=== PATIENT | male | born 1975 | race Caucasian/White ===

== ENCOUNTER → 2020-12-12 | Outpatient (CLI) | payer OTHER ==
[~2020-12-12] MED LIST: ASPI-COR81 M1 PO; CIPRO XR500 MG PO; COREG; COREG6.25 MG; DOXYCYCLINE MO100 MG PO; K-DUR 20MEQ20 MEQ PO; LANOXIN125 MCG/2. PO; LASIX20 MG PO; LISINOPRIL5 MG PO; PEPCID AC20 MG; PLAVIX75 MG PO; PRAVACHOL80 MG PO; PRILOSEC20 MG PO; ZOCOR40 MG PO
== END | disposition home or self-care (01) ==
LOC: CARD 12:37
PROVIDERS: ATTEND Internal Medicine Cardiovascular Disease
DX: I51.7 Cardiomegaly (principal); I25.5 Ischemic cardiomyopathy

== ENCOUNTER → 2021-07-10 | Outpatient (CLI) | payer OTHER ==
[2021-07-10 12:53] LABS: BUN 11 mg/dl (7-24); CHLORIDE 108 mmol/L (98-107); CHOLESTEROL 187 mg/dL (<200); CREATININE 0.72 mg/dL (0.70-1.30); LDL CHOLESTEROL 128 mg/dL (9-159); POTASSIUM 4.3 mmol/L (3.5-5.1); SODIUM 138 mmol/L (136-145); TRIGLYCERIDES 138 mg/dl (<150)
== END | disposition home or self-care (01) ==
LOC: LAB 11:48
PROVIDERS: ATTEND Internal Medicine Cardiovascular Disease
DX: I25.10 Atherosclerotic heart disease of native coronary artery without angina pectoris (principal)

== ENCOUNTER → 2021-10-02 | Outpatient (CLI) | payer OTHER ==
[~2021-10-02] MED LIST changes: +AMIODARONE900 MG/501 IV; +BUPRENORPHINE-1 EAC1 SL; +BUPROPION HCL150 M1 PO; -COREG6.25 MG; +COREG6.25 MG PO; +ENTRESTO 97 MG1 EACH PO; +NEURONTIN600 MG PO
[2021-10-02 12:59] LABS: CHLORIDE 109 mmol/L (98-107); POTASSIUM 4.6 mmol/L (3.5-5.1); SODIUM 136 mmol/L (136-145)
[2021-10-02 13:21] LABS: ALKALINE PHOSPHATASE 104 U/L (45-117); BUN 16 mg/dl (7-24); CREATININE 1.17 mg/dL (0.70-1.30); SGOT/AST 13 IU/L (3-35); SGPT/ALT 19 U/L (12-78); TOTAL PROTEIN 7.5 gm/dL (6.4-8.2)
== END ==
LOC: LAB 12:01
PROVIDERS: ATTEND Internal Medicine Clinical Cardiac Electrophysiology
DX: Z79.899 Other long term (current) drug therapy (principal)

== ENCOUNTER → 2022-06-04 | Outpatient (CLI) | payer OTHER ==
[2022-06-04 12:55] LABS: BASO # 0.1 10*3/uL (0.0-0.1); BASO % 0.6 % (0.0-1.0); EOS # 0.4 10*3/uL (0.0-0.4); EOS % 4.4 % (1.0-4.0); HEMATOCRIT 38.5 % (42.0-52.0); LYMPH # 1.5 10*3/uL (1.3-4.4); LYMPH % 17.7 % (27.0-41.0); MEAN CORPUSCULAR HGB 28.8 pg (27.0-31.0); MEAN CORPUSCULAR HGB CONC 31.7 g/dl (33.0-37.0); MONO # 0.6 10*3/uL (0.1-1.0); NEUT # 5.7 10*3/uL (2.3-7.9); NEUT % 70.1 % (47.0-73.0); PLATELET COUNT AUTOMATED 213 10*3/uL (130-400); RED BLOOD COUNT 4.23 10*6/uL (4.50-5.90); RED CELL DISTRI WIDTH 15.2 % (0-14.5); WHITE BLOOD COUNT 8.2 10*3/uL (4.8-10.8)
[2022-06-04 13:25] LABS: ALKALINE PHOSPHATASE 105 U/L (46-116); BUN 15 mg/dl (9-23); CHLORIDE 107 mmol/L (98-107); POTASSIUM 4.5 mmol/L (3.4-5.1); SGPT/ALT 14 U/L (10-49); TOTAL PROTEIN 6.9 gm/dL (6.0-8.0)
[2022-06-05 11:07] LABS: HBSAG Negative (Negative); HEP B CORE AB, IGM Negative (Negative); HEPATITIS C ANTIBODY 0.1 (0.0-0.9)
== END | disposition home or self-care (01) ==
LOC: LAB 12:06
PROVIDERS: ATTEND Nurse Practitioner Family
DX: Z13.9 Encounter for screening, unspecified (principal); Z77.21 Contact with and (suspected) exposure to potentially hazardous body fluids

== ENCOUNTER → 2022-06-26 | Outpatient (CLI) | payer OTHER | END | disposition home or self-care (01) | LOC: CARD 01:45 | PROVIDERS: ATTEND Internal Medicine Cardiovascular Disease | DX: I34.0 Nonrheumatic mitral (valve) insufficiency (principal); I25.5 Ischemic cardiomyopathy ==

== ENCOUNTER → 2022-07-03 | Outpatient (CLI) | payer OTHER ==
[2022-07-03 11:24] LABS: HEMATOCRIT 38.8 % (42.0-52.0)
[2022-07-03 11:27] LABS: BILIRUBIN Negative (Negative); BLOOD Negative (Negative); CLARITY Cloudy (Clear); COLOR Yellow (Yellow); GLUCOSE Negative (Negative); KETONE Trace (Negative); LEUKO ESTERASE Negative (Negative); NITRITE Negative (Negative); SPECIFIC GRAVITY 1.025 (1.001-1.030)
[2022-07-03 11:36] LABS: URINE CREATININE RANDOM 189.7 mg/dL
[2022-07-03 11:38] LABS: BUN 18 mg/dl (9-23); CHLORIDE 105 mmol/L (98-107); POTASSIUM 5.4 mmol/L (3.4-5.1)
[2022-07-03 12:16] LABS: BACTERIA 3+; FINE GRANULAR CAST TNTC; HYALINE CAST TNTC
[2022-07-03 13:00] LABS: VITAMIN D, 25-HYDROXY 24.1 ng/mL (30-100)
[2022-07-04 11:07] LABS: CREATININE,URINE 184.5 mg/dL (Not Estab.)
== END | disposition home or self-care (01) ==
LOC: LAB 10:45
PROVIDERS: ATTEND Internal Medicine
DX: I12.9 Hypertensive chronic kidney disease with stage 1 through stage 4 chronic kidney disease, or unspecified chronic kidney disease (principal); N18.9 Chronic kidney disease, unspecified; D63.1 Anemia in chronic kidney disease; E55.9 Vitamin D deficiency, unspecified; N25.81 Secondary hyperparathyroidism of renal origin

== ENCOUNTER → 2022-07-23 | Outpatient (CLI) | payer OTHER ==
[2022-07-23 09:50] LABS: BASO # 0.1 10*3/uL (0.0-0.1); BASO % 0.4 % (0.0-1.0); EOS # 0.2 10*3/uL (0.0-0.4); EOS % 1.9 % (1.0-4.0); HEMATOCRIT 38.9 % (42.0-52.0); LYMPH # 1.6 10*3/uL (1.3-4.4); LYMPH % 12.3 % (27.0-41.0); MEAN CELL VOLUME 93.1 fl (80.0-94.0); MEAN CORPUSCULAR HGB 30.1 pg (27.0-31.0); MEAN CORPUSCULAR HGB CONC 32.4 g/dl (33.0-37.0); MEAN PLATELET VOLUME 9.9 fl (9.6-12.3); MONO # 1.1 10*3/uL (0.1-1.0); MONO % 8.3 % (3.0-9.0); NEUT # 9.7 10*3/uL (2.3-7.9); NEUT % 76.7 % (47.0-73.0); PLATELET COUNT AUTOMATED 223 10*3/uL (130-400); RED BLOOD COUNT 4.18 10*6/uL (4.50-5.90); RED CELL DISTRI WIDTH 13.7 % (0-14.5); RETICULOCYTE % 1.96 % (0.50-2.50); WHITE BLOOD COUNT 12.7 10*3/uL (4.8-10.8)
[2022-07-23 10:09] LABS: ALKALINE PHOSPHATASE 78 U/L (46-116); BUN 17 mg/dl (9-23); CHLORIDE 107 mmol/L (98-107); CHOLESTEROL 240 mg/dL (<200); CPK 111 U/L (34-171); GAMMA GLUTAMYL TRANSPEPTIDASE 18 U/L (0-73); LDL CHOLESTEROL 164 mg/dL (9-159); POTASSIUM 4.7 mmol/L (3.4-5.1); SGPT/ALT 13 U/L (10-49); TOTAL PROTEIN 6.7 gm/dL (6.0-8.0); TRIGLYCERIDES 188 mg/dl (<150)
== END | disposition home or self-care (01) ==
LOC: LAB 08:52
PROVIDERS: ATTEND Family Medicine
DX: E78.5 Hyperlipidemia, unspecified (principal); R79.89 Other specified abnormal findings of blood chemistry; R53.83 Other fatigue; R74.8 Abnormal levels of other serum enzymes

== ENCOUNTER → 2022-08-08 | Outpatient (CLI) | payer OTHER | END | disposition home or self-care (01) | LOC: US 01:50 | PROVIDERS: ATTEND Internal Medicine | DX: N18.9 Chronic kidney disease, unspecified (principal) ==

== ENCOUNTER 2022-09-12 02:04 | Inpatient (IN) | payer OTHER ==
[2022-09-12] VITALS (79 sets, daily range): BP systolic 52–153; BP diastolic 31–127
[~2022-09-12] VITALS: Ht 185.4 cm; Wt 94.0 kg
[2022-09-12 02:32] LABS: HEMATOCRIT 30.9 % (42.0-52.0); MEAN CELL VOLUME 92.2 fl (80.0-94.0); MEAN CORPUSCULAR HGB 29.6 pg (27.0-31.0); MEAN PLATELET VOLUME 10.8 fl (9.6-12.3); PLATELET COUNT AUTOMATED 154 10*3/uL (130-400); RED BLOOD COUNT 3.35 10*6/uL (4.50-5.90); RED CELL DISTRI WIDTH 12.8 % (0-14.5); WHITE BLOOD COUNT 11.9 10*3/uL (4.8-10.8)
[2022-09-12 02:33] LABS: MANUAL DIFF REFLEX YES
[2022-09-12 02:46] LABS: ACT PARTIAL THROMBO TIME 54.4 SECONDS (20.0-32.1); INTERNATIONAL NORM RATIO 1.5 (2.0-3.5)
[2022-09-12 02:53] LABS: TOTAL CELLS COUNTED 100 #CELLS
[2022-09-12 02:54] LABS: PLATELET SUFFICIENCY NORMAL (NORMAL)
[2022-09-12 02:54] LABS: POTASSIUM 4.2 mmol/L (3.4-5.1)
[2022-09-12] MEDS ORDERED: ELIQUIS5 M1 PO (03:50)
[2022-09-12] MEDS ORDERED: GEMFIBROZIL600 MG PO (03:51)
[2022-09-12] MEDS ORDERED: ROSUVASTATIN CA40 MG PO (03:52)
[2022-09-12] MEDS ORDERED: PACERONE200 MG PO (03:53)
[2022-09-12 11:22] LABS: ARTERIAL BLOOD GAS PH 7.352 (7.35-7.45); ARTERIAL BLOOD GAS PO2 54.1 (80-90)
[2022-09-12 11:23] LABS: ABG BASE EXCESS -7.4 mmol/L (-2.0-2.0)
[2022-09-12 16:57] LABS: BILIRUBIN 1+ (Negative); BLOOD 2+ (Negative); CLARITY Turbid (Clear); COLOR Orange (Yellow); GLUCOSE Negative (Negative); KETONE Negative (Negative); LEUKO ESTERASE 1+ (Negative); NITRITE Positive (Negative); SPECIFIC GRAVITY >= 1.030 (1.001-1.030)
[2022-09-12 17:03] LABS: RBC TNTC rbc/hpf (0-2)
[2022-09-12 17:17] LABS: HEMATOCRIT 30.7 % (42.0-52.0); MEAN CELL VOLUME 91.4 fl (80.0-94.0); MEAN CORPUSCULAR HGB 30.1 pg (27.0-31.0); MEAN CORPUSCULAR HGB CONC 32.9 g/dl (33.0-37.0); MEAN PLATELET VOLUME 10.7 fl (9.6-12.3); PLATELET COUNT AUTOMATED 138 10*3/uL (130-400); RED BLOOD COUNT 3.36 10*6/uL (4.50-5.90); WHITE BLOOD COUNT 9.6 10*3/uL (4.8-10.8)
[2022-09-12 17:17] LABS: URINE AMPHETAMINES Negative (1000ng/ml); URINE BARBITURATES Negative (200ng/ml); URINE BENZODIAZEPINES Negative (200ng/ml); URINE CANNABINOIDS (THC) Negative (50ng/ml); URINE COCAINE Negative (300ng/ml); URINE METHADONE Negative (300ng/ml); URINE OPIATES Negative (300ng/ml); URINE PHENCYCLIDINE Negative (25ng/ml)
[2022-09-12 17:24] LABS: MANUAL DIFF REFLEX YES
[2022-09-12 17:38] LABS: POTASSIUM 4.8 mmol/L (3.4-5.1); TOTAL PROTEIN 6.4 gm/dL (6.0-8.0)
[2022-09-12 17:39] LABS: PLATELET SUFFICIENCY NORMAL (NORMAL); TOTAL CELLS COUNTED 100 #CELLS; TOXIC GRANULATION SLIGHT
[2022-09-12 17:40] LABS: BURR CELLS FEW
[2022-09-12 22:07] LABS: VENOUS PH 7.24 (7.37-7.45)
[2022-09-12 22:30] LABS: ARTERIAL BLOOD GAS PH 7.284 (7.35-7.45); ARTERIAL BLOOD GAS PO2 73.5 (80-90)
[2022-09-12 22:31] LABS: ABG BASE EXCESS -9.5 mmol/L (-2.0-2.0)
[2022-09-13] VITALS (14 sets, daily range): BP systolic 98–109; BP diastolic 48–58
[2022-09-13] MEDS ORDERED: SOLU-CORTEF100 M1 IV (02:09)
[2022-09-13] MEDS ORDERED: LEVOFLOXACIN500 MG PO (02:09)
[2022-09-13] MEDS ORDERED: VASOPRESSIN IV (02:16)
[2022-09-13] MEDS ORDERED: VANCOMYCIN1 GM/200 M IV (02:16)
[2022-09-13] MEDS ORDERED: NOREPINEPH4 MG/2505 IV (02:16)
[2022-09-13] MEDS ORDERED: CEFEPIME HYDROCH2 GM IV (02:16)
[2022-09-13 16:08] LABS: MYCOPLASMA PNEUMONIAE IGG 315 U/mL (0-99); MYCOPLASMA PNEUMONIAE IGM <770 U/mL (0-769)
== END 2022-09-13 04:00 | disposition short-term general hospital (02) | DRG 720 ==
LOC: ED 02:04 → ICCU 05:41 → EDHOLD 05:41 → ICCU 06:00
PROVIDERS: Emergency Medicine; Family Medicine; Internal Medicine; Student in an Organized Health Care Education/Training Program; ADMIT Internal Medicine; ATTEND Internal Medicine
PROC: 5A0935A Assistance with Respiratory Ventilation, Less than 24 Consecutive Hours, High Flow/Velocity Cannula (ICD-10-PCS; principal; 2022-09-12)
PROC: 05HN33Z Insertion of Infusion Device into Left Internal Jugular Vein, Percutaneous Approach (ICD-10-PCS; 2022-09-12)
PROC: B544ZZA Ultrasonography of Left Jugular Veins, Guidance (ICD-10-PCS; 2022-09-12)
PROC: 03HY33Z Insertion of Infusion Device into Upper Artery, Percutaneous Approach (ICD-10-PCS; 2022-09-12)
DX: A41.9 Sepsis, unspecified organism (principal); R65.21 Severe sepsis with septic shock; J96.01 Acute respiratory failure with hypoxia; K21.9 Gastro-esophageal reflux disease without esophagitis; E78.5 Hyperlipidemia, unspecified; I25.810 Atherosclerosis of coronary artery bypass graft(s) without angina pectoris; I50.20 Unspecified systolic (congestive) heart failure; I21.A1 Myocardial infarction type 2; J18.9 Pneumonia, unspecified organism; D64.9 Anemia, unspecified; E44.0 Moderate protein-calorie malnutrition; E87.20 Acidosis, unspecified; N17.0 Acute kidney failure with tubular necrosis; I95.9 Hypotension, unspecified; E87.1 Hypo-osmolality and hyponatremia; R73.9 Hyperglycemia, unspecified; Z79.82 Long term (current) use of aspirin; Z79.899 Other long term (current) drug therapy; Z68.27 Body mass index [BMI] 27.0-27.9, adult

== ENCOUNTER → 2022-12-09 | Outpatient (CLI) | payer OTHER ==
[~2022-12-09] MED LIST changes: +ACETAMINOPHEN325 M2 PO; +AMIODARONE HYD200 MG PO; +ASPIRIN81 M1 PO; +CARVEDILOL6.25 MG PO; +CEFEPIME HYDROCH2 GM IV; +ELIQUIS5 M1 PO; +FEROSUL325 MG PO; +GEMFIBROZIL600 MG PO; +LEVOFLOXACIN500 MG PO; +MIRALAX POWDER17 G1 PO; +MULTIPLE VITAM1 EAC2 PO; +NEURONTIN100 MG PO; +NOREPINEPH4 MG/2505 IV; +OMEPRAZOLE MAGN20 MG PO; +PACERONE200 MG PO; +PROVENTIL HFA6.7 GM INH; +RENAGEL800 M1 PO; +ROSUVASTATIN CA40 MG PO; +SENNA LAX8.6 M1 PO; +SOLU-CORTEF100 M1 IV; +SUBOXONE 8 MG-1 EACH SL; +VANCOMYCIN1 GM/200 M IV; +VASOPRESSIN IV; +WELLBUTRIN SR150 MG PO
[2022-12-09 09:15] LABS: BASO % 0.4 % (0.0-1.0); EOS # 0.4 10*3/uL (0.0-0.4); EOS % 4.8 % (1.0-4.0); HEMATOCRIT 35.3 % (42.0-52.0); LYMPH # 1.4 10*3/uL (1.3-4.4); LYMPH % 18.9 % (27.0-41.0); MEAN CELL VOLUME 91.9 fl (80.0-94.0); MEAN CORPUSCULAR HGB 28.1 pg (27.0-31.0); MEAN CORPUSCULAR HGB CONC 30.6 g/dl (33.0-37.0); MEAN PLATELET VOLUME 8.7 fl (9.6-12.3); MONO # 0.6 10*3/uL (0.1-1.0); MONO % 8.2 % (3.0-9.0); NEUT # 4.9 10*3/uL (2.3-7.9); NEUT % 67.4 % (47.0-73.0); PLATELET COUNT AUTOMATED 219 10*3/uL (130-400); RED BLOOD COUNT 3.84 10*6/uL (4.50-5.90); RED CELL DISTRI WIDTH 15.5 % (0-14.5); RETICULOCYTE % 3.96 % (0.50-2.50); WHITE BLOOD COUNT 7.3 10*3/uL (4.8-10.8)
[2022-12-09 09:32] LABS: BILIRUBIN Negative (Negative); BLOOD Negative (Negative); CLARITY Clear (Clear); COLOR Yellow (Yellow); GLUCOSE Negative (Negative); KETONE Negative (Negative); LEUKO ESTERASE Negative (Negative); NITRITE Negative (Negative); SPECIFIC GRAVITY 1.015 (1.001-1.030)
[2022-12-09 09:39] LABS: BACTERIA 1+
[2022-12-09 09:40] LABS: EPITHELIAL CELLS 0-2
[2022-12-09 10:04] LABS: ALKALINE PHOSPHATASE 89 U/L (46-116); BUN 12 mg/dl (9-23); CHLORIDE 107 mmol/L (98-107); CHOLESTEROL 198 mg/dL (<200); GAMMA GLUTAMYL TRANSPEPTIDASE 13 U/L (0-73); LDL CHOLESTEROL 133 mg/dL (9-159); POTASSIUM 3.8 mmol/L (3.4-5.1); T3 UPTAKE 30.2 % (22.4-36.7); TOTAL PROTEIN 7.2 gm/dL (6.0-8.0); TRIGLYCERIDES 132 mg/dl (<150); VITAMIN D, 25-HYDROXY 46.1 ng/mL (30-100)
[2022-12-09 10:31] LABS: SGPT/ALT < 7 U/L (10-49)
[2022-12-10 01:06] LABS: HEMOGOLBIN A1C 4.8 % (4.8-5.6)
== END | disposition home or self-care (01) ==
LOC: LAB 08:51
PROVIDERS: ATTEND Family Medicine
DX: E78.5 Hyperlipidemia, unspecified (principal); R53.83 Other fatigue; E55.9 Vitamin D deficiency, unspecified; R79.89 Other specified abnormal findings of blood chemistry